=== PATIENT | male | born 1960 | race Caucasian/White ===

== ENCOUNTER 2018-12-15 16:54 | Emergency (ER) | payer MEDICARE ==
[~2018-12-15] VITALS: Ht 175.3 cm; Wt 101.2 kg
[2018-12-15 16:55] VITALS: BP 106/69
[2018-12-15] MEDS ORDERED: CEPHALEXIN 250 MG CAPSULE. PO ONE (17:15)
[2018-12-15] MEDS ORDERED: LIDOCAINE 1% Multi-Dose 20 ML VIAL. INJ ONE (17:15)
[2018-12-15] MEDS ORDERED: LIDOCAINE 1% PF 30 ML VIAL. INJ ONE (17:15)
[2018-12-15] MEDS ORDERED: HYDROcodone/APAP 5/325MG 1 TAB TABLET PO ONE (17:30)
[2018-12-15] MEDS ORDERED: GELATIN SPONGE SIZE 12-7MM SPONGE. TP ONE (17:30)
[2018-12-15] MEDS ORDERED: GELATIN SPONGE SIZE 4 SPONGE. TP ONE (17:30)
[2018-12-15] MEDS ORDERED: CEPH-264 PO (17:46)
--- NOTE | 2018-12-15 17:47 | PHYS DOC ---
Past Medical History Past Medical History: Asthma, Diabetes-Type II, GERD, Hypertension, Other Additional Past Medical Histor: RLS,CHRONIC PAIN Alcohol Use: None Drug Use: None Adult General Chief Complaint Chief Complaint: PARTIAL AMPUTATION/AVULSION HPI HPI 58-year-old male presents to ER via POV for complaints of smash injury to right middle finger which occurred around 1630. Patient reports he was working in his yard when his finger got smashed between 2 pieces of metal. He reports he pulled back on his finger causing the palm surface distal portion of his finger to be pulled off. Patient denies any other injury to right hand. Pt denies any other injuries. Pt denies any OTC meds [employer] for pain. Patient denies dizziness or lightheadedness. Patient denies large amount of blood loss. Patient is up-to-date on tetanus within the past 5 years. Pt is lt hand dominant. Review of Systems Review of Systems Constitutional: Denies fatigue. GI: Denies nausea, vomiting Musculoskeletal: Reports rt middle finger pain- smash injury Integument: Reports open injury rt middle finger- palm surface Neurologic: Denies dizziness/lightheadedness All other systems were reviewed and found to be within normal limits, except as documented in this note. Current Medications Current Medications Current Medications Medications (Trade) Dose Ordered Sig/Pacheco Start Time Stop Time Status Last Admin Dose Admin Acetaminophen/ Hydrocodone Bitart (Lortab 5/325) 1 tab 1X ONCE 12/15/18 17:30 12/15/18 17:31 DC 12/15/18 17:23 1 TAB Cephalexin HCl (Keflex) 500 mg 1X ONCE 12/15/18 17:15 12/15/18 17:16 DC 12/15/18 17:11 500 MG Gelatin (Gelfoam Size 12-7mm) 1 each 1X ONCE 12/15/18 17:30 12/15/18 17:30 DC Gelatin (Gelfoam Dental Sponge Size 4) 1 each 1X ONCE 12/15/18 17:30 12/15/18 17:31 DC 12/15/18 17:30 1 EACH Lidocaine HCl (Lidocaine 1% 20ml Vial) 20 ml 1X ONCE 12/15/18 17:15 12/15/18 17:16 DC 12/15/18 17:12 20 ML Lidocaine HCl (Xylocaine 1% Pf 30ml Vial) 30 ml 1X ONCE 12/15/18 17:15 12/15/18 17:15 DC Allergies Allergies Allergies Coded Allergies Type Severity Reaction Last Updated Verified ciprofloxacin Allergy Intermediate ITCHY THROAT 12/15/18 Yes empagliflozin Allergy Unknown 12/15/18 Yes Physical Exam Physical Exam Constitutional: Well developed, well nourished, no acute distress, non-toxic appearance. [] HENT: Normocephalic, atraumatic, oropharynx moist Eyes: Pupils equal, conjunctiva normal, no discharge. [] Neck: Normal range of motion, no tenderness, supple, no stridor. [] Cardiovascular: Heart rate regular Lungs & Thorax: Resp. equal/nonlabored Skin: Warm, dry, no ecchymosis/erythema Back: No tenderness, full ROM Extremities: Pt has avulsion palm surface- distal end just past joint of rt middle finger w/exposed bone- no active bleeding. Rt middle finger nailbed intact- cap. refill brisk all fingers rt hand. Flexor intact against resistance rt middle finger- distal and middle joints. No swelling rt hand. 2+ radial bilat. No cyanosis, no clubbing, ROM intact, no edema. No other injury found on rt hand exam. Lt upper extremity no injury- NL exam. Neurologic: Alert and oriented X 3, normal motor function, normal sensory function, no focal deficits noted. [] Psychologic: Affect normal, judgement normal, mood normal. [] Current Patient Data Vital Signs Vital Signs Date Time Temp Pulse Resp B/P (MAP) Pulse Ox O2 Delivery O2 Flow Rate FiO2 12/15/18 16:55 98.2 56 18 106/69 (81) 93 Room Air 98.2 Lab Values Laboratory Tests Test 12/15/18 17:08 Glucose (Fingerstick) 173 mg/dL (70-99) H EKG EKG [] Course & Med Decision Making Course & Med Decision Making Pertinent Imaging studies reviewed. (See chart for details) 1750: Patient was evaluated in the ER following a crush injury to his right middle finger. Patient had a no fashion to the palm surface of the distal tip of his right middle finger. Upon arrival and during ER visit patient had no active bleeding. Digital block was performed which patient reported improved his right middle finger pain. Patient had Xray which was viewed by Dr. Nunez- no obvious displaced fxs. Probable tuft injury distal rt middle finger. Patient was provided with dose of Keflex and Mentor while in the ER. Patient had copious amounts of irrigation with normal saline and Betadine to right middle finger injury. Surgifoam was applied to avulsion site. Patient had tube gauze and aluminum splint applied by RN. Patient remained PMS intact in right upper extremity. In-depth conversation had with patient regarding home wound care and ongoing monitoring of skin condition for signs of infection. Patient is diabetic so he was encouraged to monitor his blood sugars closely. Patient was advised on need to call as soon as possible to schedule follow-up appointment with hand specialist or orthopedic doctor. Will provide Dr. Brown and [facility] information on discharge paperwork. Patient reports he does have prescription for oxycodone however is unable to get that filled tomorrow so will provide small quantity of Mentor with his discharge paperwork. Prescription for Keflex will also be provided. Education provided on signs and symptoms to return to ER for an discharge instructions were discussed. At time of discharge patient's dressing to right hand was dry and intact. Dragon Disclaimer Dragon Disclaimer This electronic medical record was generated, in whole or in part, using a voice recognition dictation system. Departure Departure Impression: Primary Impression: Finger avulsion Additional Impression: Crushing injury of finger, right Disposition: 01 HOME, SELF-CARE Condition: STABLE Patient Instructions: Crush Injury, Fingers or Toes, Finger Avulsion Additional Instructions: Monitor right middle finger for signs of infection as discussed. Elevate right arm as much as possible above heart to improve pain. Ice pack every 3-4 hours for 20-30 minutes at a time. Avoid direct ice contact to skin. Call as soon as possible and schedule follow-up appointment with hand specialist or orthopedic doctor. [facility] Main number [phone]. Orthopedic doctor Dr. Germain [phone]. Monitor your blood sugars. Scripts Hydrocodone/Apap 5-325 (NORCO 5-325 TABLET) 1 Each Tablet 1-2 TAB PO Q4-6HRS PRN for PAIN, #8 TAB 0 Refills No drinking alcohol or driving while taking this medication Prov: PASHA ROSA APRN 12/15/18 Cephalexin (KEFLEX) 500 Mg Capsule 1 CAP PO BID, #14 CAP 0 Refills Prov: PASHA ROSA APRN 12/15/18 Problem Qualifiers REFFITT,PASHA Trinidad APRN Dec 15, 2018 17:47
[2018-12-15] MEDS ORDERED: HYDR-3164 PO (18:07)
--- NOTE | 2018-12-15 18:15 | RAD ---
EXAM: PA view of the hand, oblique and lateral views of the right middle finger DATE: 12/15/2018 5:02 PM INDICATION: SMASH INJURY DISTAL 3RD RIGHT DIGIT TODAY COMPARISON: No Prior FINDINGS: There is a degloving type injury about the tuft of the right middle finger distally. Associated blunting of the tuft of the right middle finger distal phalanx, possibly associated fracture/amputation. 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 No significant radiocarpal joint space narrowing. IMPRESSION: 1. Degloving type injury about the distal phalanx right middle finger with blunting of the distal phalanx tuft, likely from associated fracture/amputation. 2. Scapholunate widening may suggest underlying scapholunate ligamentous injury. Electronically signed by: Paco Morgan MD (12/15/2018 6:10 PM) [facility]
== END 2018-12-15 18:22 | disposition home or self-care (01) ==
LOC: ER 16:54
DX: S67.192A Crushing injury of right middle finger, initial encounter (principal); S61.202A Unspecified open wound of right middle finger without damage to nail, initial encounter; K21.9 Gastro-esophageal reflux disease without esophagitis; I10 Essential (primary) hypertension; E11.9 Type 2 diabetes mellitus without complications; J45.909 Unspecified asthma, uncomplicated; G89.29 Other chronic pain; G25.81 Restless legs syndrome; Z88.8 Allergy status to other drugs, medicaments and biological substances; Z88.1 Allergy status to other antibiotic agents; W23.1XXA Caught, crushed, jammed, or pinched between stationary objects, initial encounter; Y93.89 Activity, other specified; Y92.89 Other specified places as the place of occurrence of the external cause; Y99.8 Other external cause status
CPT/HCPCS: 29130; 73140; 82962; 99284-25; 99285-25